=== PATIENT | male | born 1965 | race African-American/Black ===

== ENCOUNTER 2017-07-21 17:16 | Emergency (ER) | payer SELFPAY, OTHER | END 2017-07-21 19:54 | disposition left against medical advice (07) | LOC: FTE 19:54 | DX: Z53.21 Procedure and treatment not carried out due to patient leaving prior to being seen by health care provider (principal) ==

== ENCOUNTER 2018-01-01 13:10 | Emergency (ER) | payer OTHER | END 2018-01-01 14:35 | disposition home or self-care (01) | LOC: FTE 13:10 | DX: R05 Cough (principal); I10 Essential (primary) hypertension; J44.9 Chronic obstructive pulmonary disease, unspecified; F17.210 Nicotine dependence, cigarettes, uncomplicated | CPT/HCPCS: 99284; Z7502 ==

== ENCOUNTER 2018-01-30 06:18 | Emergency (ER) | payer OTHER ==
[2018-01-30] MEDS: IBUPROFEN 600 MG TAB PO (06:51)
[2018-01-30] MEDS: LORAZEPAM 0.5 MG TAB PO (06:52)
== END 2018-01-30 07:00 | disposition home or self-care (01) ==
LOC: FTE 06:18
DX: B35.3 Tinea pedis (principal); I10 Essential (primary) hypertension; J44.9 Chronic obstructive pulmonary disease, unspecified; F17.210 Nicotine dependence, cigarettes, uncomplicated
CPT/HCPCS: 99283; Z7502

== ENCOUNTER 2018-02-02 17:40 | Emergency (ER) | payer OTHER | END 2018-02-02 18:10 | disposition home or self-care (01) | LOC: E/R 17:40 | DX: B35.3 Tinea pedis (principal); J44.9 Chronic obstructive pulmonary disease, unspecified; I10 Essential (primary) hypertension; F17.210 Nicotine dependence, cigarettes, uncomplicated | CPT/HCPCS: 99283; Z7502 ==

== ENCOUNTER 2018-02-09 06:48 | Emergency (ER) | payer OTHER | END 2018-02-09 07:50 | disposition home or self-care (01) | LOC: FTE 06:48 | DX: R19.7 Diarrhea, unspecified (principal); I10 Essential (primary) hypertension; J44.9 Chronic obstructive pulmonary disease, unspecified; F17.210 Nicotine dependence, cigarettes, uncomplicated | CPT/HCPCS: 99283 ==